=== PATIENT | male | born 1980 | race African-American/Black ===

== ENCOUNTER 2016-11-19 11:20 | Emergency (ER) | payer SELFPAY ==
[2016-11-19 11:24] VITALS: BP 111/70
[2016-11-19] MEDS ORDERED: Cyclobenzaprine TAB* 10 MG PO ONE (11:41)
[2016-11-19] MEDS ORDERED: Ketorolac INJ* 60 MG/2 ML VIAL IM ONE (11:41)
--- NOTE | 2016-11-19 12:23 | RAD ---
INDICATION: Injury, low back pain. COMPARISON: There are no prior studies available for comparison. TECHNIQUE: 5 views of the lumbar spine were obtained including lateral, oblique, AP and a coned-down lateral view of the lumbar sacral junction. FINDINGS: The vertebra are in normal alignment. No fracture is seen. Disc spaces appear maintained. IMPRESSION: NO EVIDENCE FOR FRACTURE OR SUBLUXATION.
--- NOTE | 2016-11-19 12:25 | RAD ---
INDICATION: Back pain, injury at work. COMPARISON: Comparison is made with a prior chest x-ray study from April 19, 2011. TECHNIQUE: AP and lateral films of the dorsal spine were obtained. FINDINGS: The vertebra are in normal alignment. No fracture is seen. Disc spaces appear maintained. IMPRESSION: NO EVIDENCE FOR FRACTURE.
--- NOTE | 2016-11-19 12:42 | ED ---
Back Pain - HPI Summary HPI Summary: 36M presents with back pain across entire back that started yesterday at work. He went to lift a couch with a coworker and the coworker never lifted so he felt a pull in his back. He states the area feels stiff. He has been taking ibuprofen for his pain. He denies any pain into his legs. He denies any weakness, numbness or tingling. He denies any loss of bowel or bladder or saddle anaesthesia. He denies any fever. - History of Current Complaint Chief Complaint: EDBackInjuryPain Stated Complaint: PULLED MUSCLE IN BACK Time Seen by Provider: 11/19/16 11:27 Pain Intensity: 6 - Allergies/Home Medications Allergies/Adverse Reactions: Allergies Allergy/AdvReac Type Severity Reaction Status Date / Time peanuts Allergy Severe Anaphylatic Uncoded 07/22/14 17:49 Shock Ranch dressing Allergy Severe throat Uncoded 07/22/14 17:49 swells beef sticks AdvReac Anaphylatic Uncoded 07/22/14 17:49 Shock PMH/Surg Hx/FS Hx/Imm Hx Endocrine/Hematology History: Denies: Hx Diabetes Cardiovascular History: Denies: Hx Congestive Heart Failure, Hx Hypertension, Hx Pacemaker/ICD Respiratory History: Reports: Hx Asthma History: Denies: Hx Renal Disease Sensory History: Denies: Hx Hearing Aid Neurological History: Reports: Other Neuro Impairments/Disorders - PT STATES HX OF PREVIOUS BACK INJURIES. Psychiatric History: Denies: Hx Panic Disorder Infectious Disease History: No Infectious Disease History: Denies: Traveled Outside the [place] in Last 30 Days - Family History Known Family History: Positive: Cardiac Disease - Social History Alcohol Use: None Substance Use Type: Reports: None Smoking Status (MU): Never Smoked Tobacco Review of Systems Negative: Fever Negative: Chest Pain Negative: Shortness Of Breath Positive: Myalgia - back pain All Other Systems Reviewed And Are Negative: Yes Physical Exam Triage Information Reviewed: Yes Vital Signs On Initial Exam: Initial Vitals Temp Pulse Resp BP Pulse Ox 97.0 F 62 16 111/70 98 11/19/16 11:21 11/19/16 11:21 11/19/16 11:21 11/19/16 11:21 11/19/16 11:21 Vital Signs Reviewed: Yes Appearance: Positive: Well-Appearing Skin: Positive: Warm, Dry Head/Face: Positive: Normal Head/Face Inspection Eyes: Positive: Normal, Conjunctiva Clear Respiratory/Lung Sounds: Positive: Clear to Auscultation, Breath Sounds Present Cardiovascular: Positive: Normal, RRR Musculoskeletal: Positive: Strength/ROM Intact - back with pain, Other - no midline tenderness, tender greatest on right side of back across entire back from shoulder to lower back with palpable muscle spasms, neg SLR Neurological: Positive: Reflexes Intact - patella Diagnostics - Vital Signs Vital Signs Temp Pulse Resp BP Pulse Ox 11/19/16 11:24 97.0 F 64 16 111/70 100 11/19/16 11:21 97.0 F 62 16 111/70 98 - Laboratory Lab Statement: Any lab studies that have been ordered have been reviewed, and results considered in the medical decision making process. - Radiology back Xray Interpretation: No Acute Changes Radiology Interpretation Completed By: Radiologist lumbar Xray Interpretation: No Acute Changes Radiology Interpretation Completed By: Radiologist Back Pain Course/Dx - Course Course Of Treatment: 36M presents with back pain across entire back that started yesterday at work. He felt a pull in his back when trying to lift a couch. He denies any pain into his legs. He denies any weakness, numbness or tingling. No midline tenderness, tender across entire back on sides with muscle spasms, gave toradol and flexeril and provided some relief. xray normal. will contineu flexeril. patient understands and agrees with plan - Diagnoses Differential Diagnosis/HQI/PQRI: Positive: Fracture, Strain, Sprain Provider Diagnoses: Back pain Discharge - Discharge Plan Condition: Good Disposition: HOME Prescriptions: Cyclobenzaprine TAB* [Flexeril 10 MG TAB*] 10 mg PO TID PRN #8 tab PRN Reason: Pain Patient Education Materials: Back Pain (ED) Forms: *Work Release Referrals: Nathalie Cottrell MD [Primary Care Provider] - Additional Instructions: Take muscle relaxers three times a day for 3 days Use ibuprofen or Tylenol for pain every 6 hours ice/heat area, move as much as possible Follow up with primary within 5 days Return to ED if unable to ambulate or develop any new or worsening symptoms
== END 2016-11-19 12:47 | disposition home or self-care (01) ==
LOC: ED 11:20
DX: M54.9 Dorsalgia, unspecified (principal)
CPT/HCPCS: 72070; 72110; 96372; 99282; A9270-GY; J1885

== ENCOUNTER 2017-06-27 21:03 | Emergency (ER) | payer OTHER ==
--- NOTE | 2017-06-27 23:02 | ED ---
Laceration/Wound HPI - HPI Summary HPI Summary: 37-year-old male presents with right pinky finger laceration today. He states he was doing dishes and cut his finger on glass. He denies any numbness or tingling. The area is still minimally bleeding. He admits to moderate pain. He is right-handed. He states then last tetanus within 5 years. He hasn't taken anything for pain. Pain is worse with movement. - History of Current Complaint Stated Complaint: RT FINGER CUT Time Seen by Provider: 06/27/17 21:43 Pain Intensity: 9 - Allergy/Home Medications Allergies/Adverse Reactions: Allergies Allergy/AdvReac Type Severity Reaction Status Date / Time peanuts Allergy Severe Anaphylatic Uncoded 07/22/14 17:49 Shock Ranch dressing Allergy Severe throat Uncoded 07/22/14 17:49 swells beef sticks AdvReac Anaphylatic Uncoded 07/22/14 17:49 Shock PMH/Surg Hx/FS Hx/Imm Hx Endocrine/Hematology History: Denies: Hx Diabetes Cardiovascular History: Denies: Hx Congestive Heart Failure, Hx Hypertension, Hx Pacemaker/ICD Respiratory History: Reports: Hx Asthma History: Denies: Hx Renal Disease Sensory History: Denies: Hx Hearing Aid Neurological History: Reports: Other Neuro Impairments/Disorders - PT STATES HX OF PREVIOUS BACK INJURIES. Psychiatric History: Denies: Hx Panic Disorder Infectious Disease History: No Infectious Disease History: Denies: Traveled Outside the [place] in Last 30 Days - Family History Known Family History: Positive: Cardiac Disease - Social History Alcohol Use: Rare Substance Use Type: Reports: None, Marijuana Smoking Status (MU): Never Smoked Tobacco Review of Systems Negative: Fever Negative: Chest Pain Negative: Shortness Of Breath Positive: Other - right pinky finger laceration All Other Systems Reviewed And Are Negative: Yes Physical Exam Triage Information Reviewed: Yes Vital Signs On Initial Exam: Initial Vitals Temp Pulse Resp BP Pulse Ox 96.6 F 63 18 133/90 99 06/27/17 21:11 06/27/17 21:11 06/27/17 21:11 06/27/17 21:11 06/27/17 21:11 Vital Signs Reviewed: Yes Appearance: Positive: Well-Appearing Skin: Positive: Warm, Dry, Other - 1 cm flap-like laceration of the distal phalanx of right pinky finger Head/Face: Positive: Normal Head/Face Inspection Eyes: Positive: Normal, Conjunctiva Clear Respiratory/Lung Sounds: Positive: Clear to Auscultation, Breath Sounds Present Cardiovascular: Positive: Normal, RRR Musculoskeletal: Positive: Strength/ROM Intact - right pinky, Other - good pulses, capillary refill<2 secs, sensation grossly intact Neurological: Positive: Normal Psychiatric: Positive: Normal Procedures - Laceration/Wound Repair 1 Location: Other - right pinky Description: Irregular Length, Depth and Shape: 1 cm superficial flap like Irrigated w/ Saline (ccs): 50 Laceration/Wound Explored: clean, no foreign body removed Closure: Skin Adhesive, SteriStrips Diagnostics - Vital Signs Vital Signs Temp Pulse Resp BP Pulse Ox 06/27/17 21:11 96.6 F 63 18 133/90 99 - Laboratory Lab Statement: Any lab studies that have been ordered have been reviewed, and results considered in the medical decision making process. Laceration Repair Course/Dx - Course Course Of Treatment: 37-year-old male presents with right pinky finger laceration today. He states he was doing dishes and cut his finger on glass. He denies any numbness or tingling. The area is still minimally bleeding. He admits to moderate pain. He is right-handed. He states then last tetanus within 5 years. He hasn't taken anything for pain. Pain is worse with movement. Exam has flap-like laceration of the distal phalanx right pinky in the area that glued and Steri-Stripped. Placed in metal finger splint. Patient understands and agrees with plan. pinky finger - Differential Dx Differental Diagnoses: Abrasion, Avulsion, Laceration - Clinical Impression Provider Diagnoses: Finger laceration Discharge - Discharge Plan Condition: Good Disposition: HOME Patient Education Materials: Skin Adhesive Care (ED) Referrals: Nathalie Cottrell MD [Primary Care Provider] - Additional Instructions: Keep splint on area for two days Place ice on area Take Tylenol for pain as needed every 6 hours Keep dry for 24 hours Glue will fall off on own Avoid scrubbing area Return to ED if develop any signs of infection or any new or worsening symptoms
[2017-06-28 00:13] VITALS: BP 128/66
== END 2017-06-27 23:25 | disposition home or self-care (01) ==
LOC: ED 21:03
DX: S61.216A Laceration without foreign body of right little finger without damage to nail, initial encounter (principal); W25.XXXA Contact with sharp glass, initial encounter; Y92.9 Unspecified place or not applicable
CPT/HCPCS: 99281

== ENCOUNTER 2018-02-28 10:31 | Emergency (ER) | payer OTHER ==
--- NOTE | 2018-02-28 13:28 | RAD ---
HISTORY: sob COMPARISONS: May 05, 2012 VIEWS: 4: Frontal dual-energy and lateral views of the chest. FINDINGS: CARDIOMEDIASTINAL SILHOUETTE: The cardiomediastinal silhouette is normal. ANA MARIA: The ana maria are normal. PLEURA: The costophrenic angles are sharp. No pleural abnormalities are noted. LUNG PARENCHYMA: The lungs are clear. ABDOMEN: The upper abdomen is clear. There is no subphrenic gas. BONES AND SOFT TISSUES: No bone or soft tissue abnormalities are noted. OTHER: None. IMPRESSION: NO ACTIVE CARDIOPULMONARY DISEASE.
[2018-02-28 13:39] VITALS: BP 125/81
--- NOTE | 2018-02-28 15:58 | ED ---
Throat Pain/Nasal Congestion - HPI Summary HPI Summary: Patient is a 38-year-old male presenting to the ED with 2 week history of intermittent sinus pressure and pain over the maxillary sinuses. Endorses some chills, but denies any sweats or fevers. States he has had a mild cough as well without production. Green nasal discharge 2 weeks. Denies any excess fatigue, abdominal pain, headache, ear pain, neck pain. Patient is otherwise healthy and takes no medications. He has not taken any medication for relief. He is also endorsing body aches over the past week which is since resolved today. - History of Current Complaint Chief Complaint: EDFluSymptoms Time Seen by Provider: 02/28/18 10:50 Hx Obtained From: Patient Onset/Duration: Sudden Onset Severity: Moderate Associated Signs And Symptoms: Positive: Negative - Epiglottits Risk Factors Epiglottis Risk Factors: Negative - Allergies/Home Medications Allergies/Adverse Reactions: Allergies Allergy/AdvReac Type Severity Reaction Status Date / Time peanuts Allergy Severe Anaphylatic Uncoded 07/22/14 17:49 Shock Ranch dressing Allergy Severe throat Uncoded 07/22/14 17:49 swells beef sticks AdvReac Anaphylatic Uncoded 07/22/14 17:49 Shock PMH/Surg Hx/FS Hx/Imm Hx Previously Healthy: Yes Endocrine/Hematology History: Denies: Hx Diabetes Cardiovascular History: Denies: Hx Congestive Heart Failure, Hx Hypertension, Hx Pacemaker/ICD Respiratory History: Reports: Hx Asthma History: Denies: Hx Renal Disease Sensory History: Denies: Hx Hearing Aid Neurological History: Reports: Other Neuro Impairments/Disorders - PT STATES HX OF PREVIOUS BACK INJURIES. Psychiatric History: Denies: Hx Panic Disorder - Immunization History Hx Pertussis Vaccination: No Immunizations Up to Date: Yes Infectious Disease History: No Infectious Disease History: Denies: Traveled Outside the [place] in Last 30 Days - Family History Known Family History: Positive: Cardiac Disease - Social History Occupation: Unemployed Lives: Alone Alcohol Use: Rare Substance Use Type: Reports: None Smoking Status (MU): Never Smoked Tobacco Review of Systems Negative: Fever, Chills, Fatigue, Skin Diaphoresis Negative: Erythema Positive: Nasal Discharge. Negative: Sore Throat, Ear Ache Negative: Palpitations, Chest Pain Negative: Shortness Of Breath, Cough Genitourinary: Negative Positive: no symptoms reported, see HPI Negative: Arthralgia, Myalgia Negative: Headache, Weakness, Paresthesia Psychological: Normal All Other Systems Reviewed And Are Negative: Yes Physical Exam Triage Information Reviewed: Yes Vital Signs On Initial Exam: Initial Vitals Temp Pulse Resp BP Pulse Ox 97.7 F 79 16 133/76 99 02/28/18 10:39 02/28/18 10:39 02/28/18 10:39 02/28/18 10:39 02/28/18 10:39 Vital Signs Reviewed: Yes Appearance: Positive: Well-Appearing, Well-Nourished Skin: Positive: Warm, Skin Color Reflects Adequate Perfusion Head/Face: Positive: Normal Head/Face Inspection Eyes: Positive: EOMI, JULITO, Conjunctiva Clear ENT: Positive: Pharynx normal, Nasal congestion, Nasal drainage, Sinus tenderness - maxillary sinus Neck: Positive: Supple, No Lymphadenopathy Respiratory/Lung Sounds: Positive: Clear to Auscultation, Breath Sounds Present Cardiovascular: Positive: RRR, Pulses are Symmetrical in both Upper and Lower Extremities Musculoskeletal: Positive: Normal, Strength/ROM Intact Neurological: Positive: Sensory/Motor Intact, Alert, Oriented to Person Place, Time, Speech Normal Psychiatric: Positive: Normal, Affect/Mood Appropriate AVPU Assessment: Alert Diagnostics - Vital Signs Vital Signs Temp Pulse Resp BP Pulse Ox 02/28/18 13:38 99 F 65 16 125/81 96 02/28/18 10:39 97.7 F 79 16 133/76 99 - Laboratory Lab Results: Lab Results 02/28/18 Range/Units 11:47 Influenza A (Rapid) Negative (Negative) Influenza B (Rapid) Negative (Negative) Lab Statement: Any lab studies that have been ordered have been reviewed, and results considered in the medical decision making process. EENT Course/Dx - Course Course Of Treatment: Patient is evaluated for flulike symptoms and sinusitis symptoms over the past 2 weeks. He has not been taking any medications. He states symptoms have continually worsened. He is endorsing sinus pressure bilaterally over the maxillary sinus with a feeling of pressure. Green nasal drainage bilaterally. Flu swab chest x-ray obtained both of which are negative for any acute findings. On physical examination, patient has maxillary tenderness on light palpation with a feeling of fullness. Patient is given Augmentin 875 mg twice daily 7 days for sinusitis. - Diagnoses Provider Diagnoses: Sinusitis Discharge - Sign-Out/Discharge Documenting (check all that apply): Patient Departure - Discharge Plan Condition: Stable Disposition: HOME Prescriptions: Amoxicillin/Clavulanate TAB* [Augmentin TAB 875*] 875 mg PO BID #14 tab Patient Education Materials: Sinusitis (ED), Warm Compress or Soak (ED) Forms: *Work Release Referrals: Nathalie Cottrell MD [Primary Care Provider] - Additional Instructions: Drink plenty of fluids Hot showers, honey, tea, lemon may help Continue with augmentin twice daily 7 days Emergent-C over the counter - Billing Disposition and Condition Condition: STABLE Disposition: Home
== END 2018-02-28 13:38 | disposition home or self-care (01) ==
LOC: ED 10:31
DX: J32.9 Chronic sinusitis, unspecified (principal)
CPT/HCPCS: 71046; 99282

== ENCOUNTER 2019-09-26 15:40 | Emergency (ER) | payer OTHER ==
[2019-09-26 16:58] VITALS: BP 134/96
== END 2019-09-26 16:57 | disposition home or self-care (01) ==
LOC: ED 15:40